=== PATIENT | female | born 1945 ===

== ENCOUNTER 2016-09-18 21:18 | Emergency (ER) | payer MEDICARE ==
[2014-09-30 10:50] VITALS: BMI 35.4
[~2016-09-18 21:18] MED LIST: CIPRO500 MG PO; K-TAB10 MEQ PO; LASIX40 MG PO; LYRICA75 MG PO; PROTONIX I40 MG/VIAL IV; SYNTHROID50 MCG PO; ZOFRAN4 MG PO
[2016-09-18 22:38] LABS: BASOPHILS 0.2 % (0-2); EOSINOPHILS 0.3 % (0-7); HEMATOCRIT 33.9 % (36.0-48.0); LYMPHOCYTES 26.3 % (15-50); MCH 33.7 pg (26.0-34.0); MCHC 32.4 g/dL (31.0-37.0); MEAN PLATELET VOLUME 13.4 fL (7.4-10.4); MONOCYTES 23.6 % (2-11); NEUTROPHILS 48.6 % (40-80); RBC 3.26 10x6/uL (4.00-5.40); RDW 13.9 % (11.5-14.5); WBC 5.9 10x3/uL (4.8-10.8)
[2016-09-18 22:43] LABS: PLATELET COUNT 64 10x3/uL (130-400)
[2016-09-18 23:06] LABS: ALBUMIN 4.2 g/dL (3.4-5.0); ALKALINE PHOSPHATASE 75 U/L (46-116); ALT (SGPT) 21 U/L (10-68); BILIRUBIN - TOTAL 1.09 mg/dL (0.2-1.3); CALC OSMOLALITY 285 mosm/kg (275-300); CALCIUM 9.1 mg/dL (8.5-10.1); CARBON DIOXIDE 25.8 mmol/L (21.0-32.0); CHLORIDE - SERUM 106 mmol/L (98-107); CREATININE - SERUM 1.8 mg/dL (0.6-1.3); GLUCOSE 98 mg/dL (74-106); POTASSIUM - SERUM 3.4 mmol/L (3.5-5.1); PROTEIN - SERUM 8.7 g/dL (6.4-8.2); SODIUM 142 mmol/L (136-145); UREA NITROGEN 21 mg/dL (7-18); eGFR NON AFRICAN AMERICAN 29 mL/min (90-120)
[2016-09-18 23:17] LABS: CHOL - HDL RATIO 6.3 ratio (2.3-4.1); CHOLESTEROL, TOTAL 144 mg/dL (0-200); CKMB 1.1 U/L (0.0-3.6); CREATINE KINASE 182 UL (21-215); HDL CHOLESTEROL 23 mg/dL (32-96); LDL CHOLESTEROL 75 mg/dL (0-100); LDL-HDL RATIO 3.3 ratio (1.5-3.5); PRO BNP 347 pg/mL (0-125); TRIGLYCERIDE 234 mg/dL (30-200)
[2016-09-18 23:20] LABS: TROPONIN-I < 0.017 ng/mL (0.000-0.060)
== END 2016-09-19 00:06 | disposition home or self-care (01) ==
LOC: D.ER 21:18
PROVIDERS: Family Medicine
DX: R07.89 Other chest pain (principal); R60.0 Localized edema; E03.9 Hypothyroidism, unspecified